=== PATIENT | male | born 1970 | race Caucasian/White ===

== ENCOUNTER 2017-12-29 03:13 | Emergency (ER) | payer OTHER ==
[2017-12-29 05:16] LABS: ALT (SGPT) 285 U/L (8-55); AST (SGOT) 471 U/L (5-34); Albumin 3.8 g/dL (3.5-5.0); Alkaline Phosphatase 314 U/L (40-150); Anion Gap 15 mmol/L (10-20); BUN (Urea Nitrogen) 22 mg/dL (8.9-20.6); Bilirubin, Total 0.8 mg/dL (0.2-1.2); Calc. Creatinine Clearance 0 mL/min (70-130); Carbon Dioxide 20 mmol/L (22-29); Chloride 103 mmol/L (98-107); Estimated GFR-MDRD Greater than 90; Glucose 117 mg/dL (70-105); Lipase 25 U/L (8-78); Potassium 3.4 mmol/L (3.5-5.1); Protein, Total 6.8 g/dL (6.0-8.3); Sodium 135 mmol/L (136-145)
[2017-12-29 05:20] LABS: Hemoglobin 9.3 g/dL (14.0-18.0); Mean Corpuscular HGB CONC 33.8 g/dL (32.0-36.0); Mean Corpuscular Hemoglobin 29.1 pg (27.0-31.0); Mean Corpuscular Volume 86.2 fL (78.0-98.0); Red Blood Cell (RBC) Count 3.21 mill/uL (4.70-6.10); White Blood Cell (WBC) Count 13.3 thou/uL (4.8-10.8)
[2017-12-29 05:21] LABS: #Lymphocytes 1.1 thou/uL (1.20-3.40); #Monocytes 0.9 thou/uL (0.11-0.59); #Neutrophils 11.2 thou/uL (1.40-6.50); %Basophils 0.4 % (0.0-1.0); %Eosinophils 0.3 % (0.0-10.0); %Lymphocytes 8.1 % (21.0-51.0); %Monocytes 6.8 % (0.0-10.0); %Neutrophils 84.3 % (42.0-75.0); Mean Platelet Volume 5.6 fL (7.4-10.4); Platelet Count 610 thou/uL (130-400)
[2017-12-29 05:22] LABS: #Basophils 0.1 thou/uL (0.0-0.2)
[2017-12-29 05:35] LABS: Bilirubin Moderate (Negative); Blood, Urine Negative (Negative); Clarity CLEAR (Clear); Glucose, Urine (Dipstick) Negative (Negative); Leukocyte Negative (Negative); Nitrite Negative (Negative); Protein, Urine (Dipstick) 30 mg/dL (Neg-Trace); Specific Gravity, Urine 1.037 (1.002-1.036)
[2017-12-29 05:38] LABS: Bacteria/HPF None Seen HPF (None Seen); Pathc Cast-AUWi Flag 2.47 (0-2.49); RBC/HPF 0-3 HPF (0-3); WBC/HPF 0-3 HPF (0-3)
[2017-12-29 05:47] LABS: Yeast-AUWi Flag 30.3 (0-25.0)
[2017-12-29 05:57] LABS: Transitional Epithelial 0-3 HPF (0-3); Yeast-All Forms None Seen HPF (None Seen)
[2017-12-29] MEDS ORDERED: Pantoprazole 40 MG VIAL ONE (06:20)
--- NOTE | 2017-12-29 07:09 | PDOC.FPRHP ---
- History PMHx: PSHx: FHx: Social: - Vital signs BP: [] HR: [] RR: [] Tmax: [] Pox: []% on [] Wt: [] FMR H&P: Results - Labs Result Diagrams: 12/29/17 04:00 12/29/17 04:00 Lab results: WBC 13.3 thou/uL (4.8-10.8) H 12/29/17 04:00 Hgb 9.3 g/dL (14.0-18.0) L 12/29/17 04:00 Hct 27.6 % (42.0-52.0) L 12/29/17 04:00 MCV 86.2 fL (78.0-98.0) 12/29/17 04:00 Plt Count 610 thou/uL (130-400) H 12/29/17 04:00 Neutrophils % 84.3 % (42.0-75.0) H 12/29/17 04:00 Sodium 135 mmol/L (136-145) L 12/29/17 04:00 Potassium 3.4 mmol/L (3.5-5.1) L 12/29/17 04:00 Chloride 103 mmol/L (98-107) 12/29/17 04:00 Carbon Dioxide 20 mmol/L (22-29) L 12/29/17 04:00 BUN 22 mg/dL (8.9-20.6) H 12/29/17 04:00 Creatinine 0.69 mg/dL (0.6-1.3) 12/29/17 04:00 Glucose 117 mg/dL (70-105) H 12/29/17 04:00 Calcium 9.0 mg/dL (7.8-10.44) 12/29/17 04:00 Total Bilirubin 0.8 mg/dL (0.2-1.2) 12/29/17 04:00 AST 471 U/L (5-34) H 12/29/17 04:00 ALT 285 U/L (8-55) H 12/29/17 04:00 Alkaline Phosphatase 314 U/L (40-150) H 12/29/17 04:00 Serum Total Protein 6.8 g/dL (6.0-8.3) 12/29/17 04:00 Albumin 3.8 g/dL (3.5-5.0) 12/29/17 04:00 Lipase 25 U/L (8-78) 12/29/17 04:00 Urine Ketones 80 mg/dL (Negative) H 12/29/17 04:50 Urine Blood Negative (Negative) 12/29/17 04:50 Urine Nitrite Negative (Negative) 12/29/17 04:50 Ur Leukocyte Esterase Negative (Negative) 12/29/17 04:50 Urine RBC 0-3 HPF (0-3) 12/29/17 04:50 Urine WBC 0-3 HPF (0-3) 12/29/17 04:50 Ur Squamous Epith Cells 7-10 HPF (0-3) H 12/29/17 04:50 Urine Bacteria None Seen HPF (None Seen) 12/29/17 04:50 FMR H&P: Upper Level - Plan Date/Time: 12/29/17 0709 I, [], have evaluated this patient and agree with findings/plan as outlined by help desk intern resident. Pertinent changes/additions are listed here.
--- NOTE | 2017-12-29 08:51 | CT ---
PRELIMINARY REPORT/[facility]/EMERGENTY AFTER-HOURS PROCEDURE CT Abdomen and Pelvis With Intravenous Contrast EXAM DATE/TIME: 12/29/2017 4:17 AM CLINICAL HISTORY: 47 years old, male; Pain; Abdominal pain; Localized; Upper; Prior surgery; Patient HX: 47 y/o m prese nts from nursing home due to abdominal pain that is in the ruq and has been ongoing for 2 weeks. He reports t hat the pain radiates from between his shoulder blades to his ruq and is worse with movement. He newton es any association with eating. He does report 2 episodes of vomiting 2 days ago. Reports decreased a ppetite, but has been tolerating liquids without difficulty. He reports constipation with his last bm > 7 days ago. He denies any hematemesis or fevers. He has a h/o appendectomy TECHNIQUE: Axial computed tomography images of the abdomen and pelvis with intravenous contrast. Coronal reformatted images were created and reviewed. COMPARISON: No relevant prior studies available. FINDINGS: Lower thorax: No acute findings. ABDOMEN: Liver: Normal. No mass. Gallbladder and bile ducts: Normal. No calcified stones. No ductal dilation. Pancreas: Normal. No ductal dilation. Spleen: Normal. No splenomegaly. Adrenals: Normal. No mass. Kidneys and ureters: Normal. No hydronephrosis. Stomach and bowel: There is a large amount of stool in the colon. The wall of the distal stomach and proximal duodenum is thickened. There is mild infiltration of adjacent fat. There is a 3.2 x 2.5 x 2. 7 cm a gas and fluid collection apparently in the in the wall of the duodenal bulb. Prominent adjacent lymph nodes are likely reactive. Appendix: The appendix is not identified. PELVIS: Bladder: Unremarkable as visualized. Reproductive: Unremarkable as visualized. ABDOMEN and PELVIS: Intraperitoneal space: Normal. No free air. No significant fluid collection. Bones/joints: No acute fracture. No dislocation. Soft tissues: See Stomach And Bowel Finding. Vasculature: Normal. No abdominal aortic aneurysm. Lymph nodes: See Stomach And Bowel Finding. IMPRESSION: 1. Inflammatory process involving the distal stomach and proximal duodenum with a fluid collection rosario spicious for ulcer in the duodenal bulb. 2. Large amount of stool in the colon consistent with constipation. Thank you for allowing us to participate in the care of your patient. Dictated and Authenticated by: Ammon Neal MD 12/29/2017 5:37 AM Central Time ([place] & [place]) FINAL REPORT CT ABDOMEN AND PELVIS WITH IV CONTRAST PERFORMED ON AN EMERGENCY BASIS: Date: 01/08/18 Time: 0418 hours HISTORY: Upper abdominal pain. FINDINGS: Findings agree with the preliminary report by Viv. Upper abdominal inflammation involves primarily t he distal stomach and proximal duodenum. Possible ulceration. POS: MARANDA
[2017-12-29] MEDS ORDERED: ISOVUE-370 76%-LOCM 1 ML ONE (15:09)
== END 2017-12-29 10:43 | disposition short-term general hospital (02) ==
LOC: EEVIPCON 03:13 → ERS 03:13
DX: K26.9 Duodenal ulcer, unspecified as acute or chronic, without hemorrhage or perforation (principal); D64.9 Anemia, unspecified; F41.9 Anxiety disorder, unspecified; Z87.891 Personal history of nicotine dependence; Z79.899 Other long term (current) drug therapy
CPT/HCPCS: 36415; 74177; 80053; 81003; 81015; 83690; 85025; 93005; 96361; 96374; C9113